=== PATIENT | female | born 1990 | race Caucasian/White ===

== ENCOUNTER 2019-09-15 15:51 | Outpatient (CLI) | payer OTHER, SELFPAY ==
[2019-09-15 16:53] LABS: Basophils Percent Auto 0.4 % (0.2-1.2); Eosinophils Absolute Auto 0.1 K/mm3 (0-0.3); Eosinophils Percent Auto 0.9 % (0-4.4); Hematocrit 37.8 % (37.0-47.0); Hemoglobin 13.2 g/dL (12.0-15.0); Immature Granulocyte Absolute 0.02 K/mm3 (0.00-0.031); Immature Granulocyte Percent A 0.2 % (0-0.5); Lymphocytes Absolute Auto 2.93 K/mm3 (0.9-3.2); Lymphocytes Percent Auto 27.7 % (18.3-44.2); Mean Corpuscular HGB Conc 34.9 g/dl (32-36); Mean Corpuscular Hemoglobin 30.2 pg (26-34); Mean Corpuscular Volume 86.5 fl (80-100); Mean Platelet Volume 10.3 fl (7.4-10.4); Monocytes Absolute Auto 0.6 K/mm3 (0.1-0.6); Monocytes Percent Auto 5.5 % (2.6-8.5); Neutrophils Absolute Auto 6.9 K/mm3 (1.3-6.7); Neutrophils Percent Auto 65.3 % (45.5-73.1); Platelet Count Result 194 k/mm3 (150-375); Red Blood Count 4.37 M/mm3 (4.2-5.4); Red Cell Distribution Width 12.1 % (11.5-14.5); White Blood Count 10.6 K/mm3 (4.5-10.0)
[2019-09-15 17:34] LABS: Hemoglobin A1C 4.9 % (<5.7)
[2019-09-15 17:59] LABS: Vitamin D 25 Hydroxy 43.1 ng/mL
[2019-09-15 18:12] LABS: Hepatitis B Surface Antigen Negative (Negative); Rubella IgG Antibody 95.1 IU/ML
[2019-09-15 18:17] LABS: HIV 1/2 Ab P24 Ag Result Negative (Negative)
[2019-09-16 06:57] LABS: Rapid Plasma Reagin Non-Reactive (NonReactive)
== END 2019-09-15 15:52 | disposition home or self-care (01) ==
LOC: ANHLAB 16:07
PROVIDERS: PCP Family Medicine; Visit Provider Obstetrics & Gynecology Gynecology
DX: Z36.9 Encounter for antenatal screening, unspecified (principal); Z3A.00 Weeks of gestation of pregnancy not specified
CPT/HCPCS: 36415; 82306; 83036; 85025; 86592; 86703; 86762; 86850; 86900; 86901; 87340; G0432

== ENCOUNTER → 2019-10-20 15:41 | Outpatient (CLI) | payer OTHER, SELFPAY ==
--- NOTE | ~2019-10-20 | US_ITS ---
EXAMINATION: US OB >= 14 weeks Fetus DATE: 10/20/2019 16:35 INDICATION: Second trimester anatomic survey TECHNIQUE: Real-time ultrasound of the pelvis was performed. COMPARISON: None. FINDINGS: There is a single living fetus in variable presentation. The placenta is posterior and 8 cm from the internal cervical os. A 1.4 cm hypoechoic area of the placenta could reflect a venous ramos. hea rt rate is 151 beats per minute (bpm). cardiac activity and movement are noted. The amni otic fluid index is subjectively normal. The following anatomy was identified as normal: 4 chamber heart 3 vessel cord cord insertion kidneys urinary bladder stomach spine diaphragm ventricles cisterna magna cerebellum The following biometric data were obtained: Biparietal diameter (BPD): 4.0 cm; head circumference (HC): 15.9 cm; abdominal circumference (AC): 13 .0 cm; femur length (FL): 2.5 cm. These measurements are concordant. Estimated weight is 230 g +/- 34 g, which correlates with the 51st percentile when 03/21/2020 is used as estimated date of delivery. As single measurements, these parameters are each equal to the following estimated gestational ages w ith ranges of +/- 2 standard deviations: BPD: 18 weeks 2 days ( 16 weeks 4 days - 20 weeks 0 days). HC: 18 weeks 5 days ( 17 weeks 2 days - 20 weeks 2 days). AC: 18 weeks 4 days ( 16 weeks 3 days - 20 weeks 4 days). FL: 17 weeks 5 days ( 16 weeks 3 days - 19 weeks 1 days). estimated gestational age based solely on measurements from this exam is 18 weeks 2 days +/- 1 weeks 2 days. IMPRESSION: 1. Single living fetus in variable presentation. 2. Estimated weight is 230 g +/- 34 g, which correlates with the 51st percentile when 03/21/2020 is used as estimated date of delivery. Reviewed, dictated and finalized at location A. IMPRESSION: 1. Single living fetus in variable presentation. 2. Estimated weight is 230 g +/- 34 g, which correlates with the 51st per centile when 03/21/2020 is used as estimated date of delivery.
== END ==
PROVIDERS: Visit Provider Nurse Practitioner
DX: Z36.9 Encounter for antenatal screening, unspecified (principal); Z3A.18 18 weeks gestation of pregnancy
CPT/HCPCS: 76805

== ENCOUNTER 2019-12-27 08:28 | Outpatient (CLI) | payer OTHER, SELFPAY ==
[2019-12-27 10:02] LABS: Hematocrit 35.6 % (37.0-47.0); Hemoglobin 12.1 g/dL (12.0-15.0)
[2019-12-27 11:28] LABS: Glucose 1 Hour PP 50gm Dose 115 mg/dL
[2019-12-27 11:44] LABS: Vitamin D 25 Hydroxy 38.9 ng/mL
[2019-12-27 12:08] LABS: HIV 1/2 Ab P24 Ag Result Negative (Negative)
== END 2019-12-27 08:29 | disposition home or self-care (01) ==
PROVIDERS: Referring Provider Obstetrics & Gynecology Gynecology; Visit Provider Internal Medicine Hematology & Oncology
DX: Z34.90 Encounter for supervision of normal pregnancy, unspecified, unspecified trimester (principal)
CPT/HCPCS: 36415; 82306; 82947; 85014; 85018; 86703; G0432

== ENCOUNTER → 2020-02-22 15:22 | Outpatient (CLI) | payer OTHER, SELFPAY ==
--- NOTE | ~2020-02-22 | US_ITS ---
EXAMINATION: US OB follow up DATE: 02/22/2020 15:48 INDICATION: Size less than dates. Evaluate ARTHUR and growth. TECHNIQUE: Real-time transabdominal obstetric ultrasound. FINDINGS: Comparison to ultrasound dated 10/20/2019 There is a single living fetus in vertex presentation. The placenta is posterior without placenta pr evia. cardiac activity and movement is noted with a heart rate of 138 beats per minute. T he amniotic fluid volume is normal. ARTHUR is normal measuring 17.6 cm. The following biometric data were obtained: BPD: 95mm corresponds to gestational age 38 weeks 6 days. Head circumference: 333mm corresponds to gestational age 38 weeks 0 days. Abdominal circumference: 319mm corresponds to gestational age 35 weeks 6 days. Femur length: 74mm corresponds to gestational age 37 weeks 4 days. Estimated weight: 3055grams +/- 458grams which is 72 percentile. IMPRESSION: 1. Single living intrauterine in vertex presentation with an estimated gestational age of 36 weeks 1 days by inititial ultrasound. Appropriate interval growth. 2. Normal placenta. 3: Normal ARTHUR measures 17.6 cm. Reviewed, dictated and finalized at location A. RUMENT TECHNOLOGIST IMPRESSION: 1. Single living intrauterine in vertex presentation with an estimat ed gestational age of 36 weeks 1 days by inititial ultrasound. Appropriate int erval growth. 2. Normal placenta. 3: Normal ARTHUR measures 17.6 cm.
== END ==
PROVIDERS: PCP Family Medicine; Visit Provider Nurse Practitioner
DX: O36.5930 Maternal care for other known or suspected poor fetal growth, third trimester, not applicable or unspecified (principal); Z3A.36 36 weeks gestation of pregnancy
CPT/HCPCS: 76816

== ENCOUNTER 2020-02-28 14:15 | Outpatient (CLI) | payer OTHER, SELFPAY ==
[2020-02-28] VITALS (15 sets, daily range): BP systolic 143–157; BP diastolic 90–98; PULSE 64–95; TEMP 36.8; O2SAT 98–99; BMI 29.2
[2020-02-28 15:26] LABS: Basophils Percent Auto 0.4 % (0.2-1.2); Eosinophils Absolute Auto 0.1 K/mm3 (0-0.3); Eosinophils Percent Auto 0.8 % (0-4.4); Hematocrit 32.5 % (37.0-47.0); Hemoglobin 11.2 g/dL (12.0-15.0); Immature Granulocyte Absolute 0.02 K/mm3 (0.00-0.031); Immature Granulocyte Percent A 0.3 % (0-0.5); Lymphocytes Absolute Auto 2.04 K/mm3 (0.9-3.2); Lymphocytes Percent Auto 27.3 % (18.3-44.2); Mean Corpuscular HGB Conc 34.5 g/dl (32-36); Mean Corpuscular Hemoglobin 29.9 pg (26-34); Mean Corpuscular Volume 86.7 fl (80-100); Mean Platelet Volume 11.1 fl (7.4-10.4); Monocytes Absolute Auto 0.7 K/mm3 (0.1-0.6); Monocytes Percent Auto 8.7 % (2.6-8.5); Neutrophils Absolute Auto 4.7 K/mm3 (1.3-6.7); Neutrophils Percent Auto 62.5 % (45.5-73.1); Platelet Count Result 157 k/mm3 (150-375); Red Blood Count 3.75 M/mm3 (4.2-5.4); Red Cell Distribution Width 12.2 % (11.5-14.5); White Blood Count 7.5 K/mm3 (4.5-10.0)
[2020-02-28 15:38] LABS: Alanine Aminotransferase 13 U/L (4-35); Albumin Level 3.1 g/dL (3.5-5.1); Alkaline Phosphatase 124 U/L (38-126); Anion Gap 7 mmol/L (8-16); Aspartate Amino Transferase 29 U/L (14-36); Bilirubin,Total 0.5 mg/dL (0.2-1.3); Blood Urea Nitrogen 9 mg/dL (7-17); Calcium 8.7 mg/dL (8.4-10.2); Carbon Dioxide 20 mmol/L (22-30); Chloride 108 mmol/L (98-107); Estimated Glomerular Filt Rate > 60; Glucose 92 mg/dL (65-105); Potassium 3.8 mmol/L (3.4-5.0); Sodium 135 mmol/L (137-145); Uric Acid 6.2 mg/dL (2.5-7.5)
[2020-02-28 15:58] LABS: Add Urine Microscopic? YES; Amorphous Sediment Urine Few; Appearance Urine Cloudy (Clear); Bacteria Urine 4+ /hpf; Bilirubin Urine Negative (Negative); Blood Urine 3+ (Negative); Color Urine Yellow (Yellow); Glucose Urine UA Negative (Negative); Ketones Urine Negative (Negative); Leukocyte Esterase Ur Negative LEU/UL (Negative); Nitrate Urine Negative (Negative); Protein Urine 1+ mg/dL (Negative); RBC Urine 21-50 /hpf (0-2); Specific Grav Ur 1.006 (1.001-1.035); Squamous Epithelial Cell Urine Few /hpf (Few); Urobilinogen Urine Negative mg/dL (<2.0); WBC Urine 16-20 /hpf
[2020-02-28 16:03] LABS: Creatinine Urine 39.2 mg/dL; Total Protein Urine Random 28 mg/dL; Ur Ttl Prot Creatinine Ratio 0.71 mg/mg (0-0.20)
--- NOTE | 2020-02-28 16:13 | PC.NURSE ---
Dr. Bennett returned page and informed of BP's, reactive NST, and lab results. doesn't want to start any hypertensives at this time. Orders for discharge received. Pt to complete 24 hr urine at home and call office morning to discuss results. 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 Pt to be off work until further notice.
== END 2020-02-28 16:45 | disposition home or self-care (01) ==
LOC: ANHOBOP 14:18 → ANHOBPP 14:46
PROVIDERS: PCP Family Medicine; Visit Provider Obstetrics & Gynecology Gynecology
DX: O13.9 Gestational [pregnancy-induced] hypertension without significant proteinuria, unspecified trimester (principal); Z3A.00 Weeks of gestation of pregnancy not specified
CPT/HCPCS: 36415; 59025; 80053; 81001; 82570; 84156; 84550; 85025; 87086; 99199

== ENCOUNTER 2020-02-29 15:46 | Outpatient (NON) | payer OTHER, SELFPAY ==
[2020-02-29 16:02] VITALS: BMI 29.2
[2020-02-29 16:25] LABS: Collection Time Urine 24 HOURS
[2020-02-29 16:26] LABS: Patient Weight 192 Lbs; Total Volume 24 Hour Urine 1800 ml
[2020-02-29 16:35] LABS: Creatinine Clearance Urine 104.4 ml/min (75-125); Creatinine Urine 77.3 mg/dL; Total Protein Urine Random 31 mg/dL
[2020-02-29 16:48] LABS: Total Protein Urine 24 Hr 558 MG/DAY (28-141)
== END 2020-02-29 15:47 ==
PROVIDERS: PCP Family Medicine; Visit Provider Obstetrics & Gynecology Gynecology
DX: O13.3 Gestational [pregnancy-induced] hypertension without significant proteinuria, third trimester (principal); Z3A.37 37 weeks gestation of pregnancy
CPT/HCPCS: 81050; 82575; 84156

== ENCOUNTER 2020-02-29 18:27 | Inpatient (IN) | payer OTHER, SELFPAY ==
[2020-02-20 15:24] VITALS: BMI 28.5
[2020-02-29] VITALS (13 sets, daily range): BP systolic 125–148; BP diastolic 83–98; PULSE 65–95; RESP 18; TEMP 36.9–37.1; O2SAT 98
[2020-02-29] MEDS: DINOPROSTONE 10 MG VAG INSERT VAGINAL (19:30)
[2020-02-29 19:56] LABS: Basophils Percent Auto 0.2 % (0.2-1.2); Eosinophils Absolute Auto 0.1 K/mm3 (0-0.3); Hematocrit 33.1 % (37.0-47.0); Hemoglobin 11.6 g/dL (12.0-15.0); Immature Granulocyte Absolute 0.03 K/mm3 (0.00-0.031); Immature Granulocyte Percent A 0.4 % (0-0.5); Lymphocytes Absolute Auto 2.23 K/mm3 (0.9-3.2); Lymphocytes Percent Auto 26.7 % (18.3-44.2); Mean Corpuscular Hemoglobin 30.9 pg (26-34); Mean Platelet Volume 11.5 fl (7.4-10.4); Monocytes Absolute Auto 0.7 K/mm3 (0.1-0.6); Monocytes Percent Auto 7.9 % (2.6-8.5); Neutrophils Absolute Auto 5.3 K/mm3 (1.3-6.7); Neutrophils Percent Auto 63.8 % (45.5-73.1); Platelet Count Result 160 k/mm3 (150-375); Red Blood Count 3.76 M/mm3 (4.2-5.4); Red Cell Distribution Width 12.6 % (11.5-14.5); White Blood Count 8.4 K/mm3 (4.5-10.0)
[2020-02-29 20:05] LABS: Alanine Aminotransferase 12 U/L (4-35); Albumin Level 3.1 g/dL (3.5-5.1); Alkaline Phosphatase 123 U/L (38-126); Anion Gap 6 mmol/L (8-16); Aspartate Amino Transferase 26 U/L (14-36); Bilirubin,Total 0.5 mg/dL (0.2-1.3); Blood Urea Nitrogen 11 mg/dL (7-17); Calcium 8.2 mg/dL (8.4-10.2); Carbon Dioxide 22 mmol/L (22-30); Chloride 107 mmol/L (98-107); Estimated CRCL calculation 101 ml/min; Estimated Glomerular Filt Rate > 60; Glucose 96 mg/dL (65-105); Potassium 3.9 mmol/L (3.4-5.0); Sodium 135 mmol/L (137-145); Uric Acid 6.2 mg/dL (2.5-7.5)
[2020-02-29 20:53] LABS: HIV 1/2 Ab P24 Ag Result Negative (Negative)
[2020-02-29] MEDS: LACTATED RINGERS 1,000 ML 125 ML IV CONT (22:50)
[2020-02-29] MEDS: AMPICILLIN 2 GM/NS 100 ML 2 GM/100 ML BAG IVPB (22:51)
[2020-02-29] MEDS: fentaNYL CITRATE INJ (*CRX) 100 MCG/2 ML VIAL 50 MCG IV PUSH (23:01)
[2020-03-01] VITALS (172 sets, daily range): BP systolic 111–164; BP diastolic 67–106; PULSE 50–213; RESP 16–20; TEMP 36.6–37.5; O2SAT 93–100
--- NOTE | 2020-03-01 01:01 | WPDANESEPP ---
Anes - Eval Pre Procedure Procedure: labor epidural Date/Time: 03/01/20 01:01 Surgeon: lawrence Preop Diagnosis: pain during labor Pre Op Diagnosis: IOL Patient Data Age: 29 Gender: F Height: 1.73 m Weight: 85 kg Last Vital Signs Temp 36.8 C 03/01/20 00:27 Pulse 78 03/01/20 01:00 Resp 20 03/01/20 00:27 BP 164/105 H 03/01/20 01:00 Pulse Ox 100 03/01/20 01:00 Allergies Allergy/AdvReac Type Severity Reaction Status Date / Time No Known Allergies Allergy Verified 02/28/20 15:34 Home Medications Medication Instructions Recorded Confirmed Type PNV [id number] 2 tablet PO DAILY 02/28/20 02/28/20 History [ Gummies] aspirin [Adult Aspirin] 81 mg PO DAILY 02/28/20 02/28/20 History cholecalciferol (vitamin D3) 125 mcg PO DAILY 02/28/20 02/28/20 History [Vitamin D3] Laboratory Tests 02/29/20 02/29/20 02/29/20 19:39 19:39 19:39 WBC 8.4 K/mm3 K/mm3 (4.5-10.0) RBC 3.76 M/mm3 L M/mm3 (4.2-5.4) Hgb 11.6 g/dL L g/dL (12.0-15.0) Hct 33.1 % L % (37.0-47.0) MCV 88.0 fl fl (80-100) MCH 30.9 pg pg (26-34) MCHC 35.0 g/dl g/dl (32-36) RDW 12.6 % % (11.5-14.5) Plt Count 160 k/mm3 k/mm3 (150-375) MPV 11.5 fl H fl (7.4-10.4) Immature Gran % (Auto) 0.4 % % (0-0.5) Neut % (Auto) 63.8 % % (45.5-73.1) Lymph % (Auto) 26.7 % % (18.3-44.2) [place] % (Auto) 7.9 % % (2.6-8.5) Eos % (Auto) 1.0 % % (0-4.4) Baso % (Auto) 0.2 % % (0.2-1.2) Lymph # (Auto) 2.23 K/mm3 K/mm3 (0.9-3.2) [place] # (Auto) 0.7 K/mm3 H K/mm3 (0.1-0.6) Eos # (Auto) 0.1 K/mm3 K/mm3 (0-0.3) Baso # (Auto) 0.0 K/mm3 K/mm3 (0.0-0.1) Abs Immat Gran (auto) 0.03 K/mm3 K/mm3 (0.00-0.031) Absolute Neuts (auto) 5.3 K/mm3 K/mm3 (1.3-6.7) Absolute Nucleated RBC 0.0 K/mm3 K/mm3 (0.0-0.012) Nucleated RBC % 0.0 % % (0.0-0.2) Sodium Potassium Chloride Carbon Dioxide Anion Gap BUN Creatinine Estim Creat Clear Calc Estimated GFR Glucose Uric Acid Calcium Total Bilirubin AST ALT Alkaline Phosphatase Total Protein Albumin RPR Pending HIV 1&2 Ab/P24 Ag 4thGn Blood Type O Positive Antibody Screen Negative 02/29/20 02/29/20 19:39 19:39 WBC RBC Hgb Hct MCV MCH MCHC RDW Plt Count MPV Immature Gran % (Auto) Neut % (Auto) Lymph % (Auto) [place] % (Auto) Eos % (Auto) Baso % (Auto) Lymph # (Auto) [place] # (Auto) Eos # (Auto) Baso # (Auto) Abs Immat Gran (auto) Absolute Neuts (auto) Absolute Nucleated RBC Nucleated RBC % Sodium 135 mmol/L L mmol/L (137-145) Potassium 3.9 mmol/L mmol/L (3.4-5.0) Chloride 107 mmol/L mmol/L (98-107) Carbon Dioxide 22 mmol/L mmol/L (22-30) Anion Gap 6 mmol/L L mmol/L (8-16) BUN 11 mg/dL mg/dL (7-17) Creatinine 0.80 mg/dL mg/dL (0.7-1.0) Estim Creat Clear Calc 101 ml/min ml/min Estimated GFR > 60 (59 - ) Glucose 96 mg/dL mg/dL (65-105) Uric Acid 6.2 mg/dL mg/dL (2.5-7.5) Calcium 8.2 mg/dL L mg/dL (8.4-10.2) Total Bilirubin 0.5 mg/dL mg/dL (0.2-1.3) AST 26 U/L U/L (14-36) ALT 12 U/L U/L (4-35) Alkaline Phosphatase 123 U/L U/L (38-126) Total Protein 6.0 g/dL L g/dL (6.3-8.2) Albumin 3.1 g/dL L g/dL
[2020-03-01] MEDS: LACTATED RINGERS 1,000 ML 125 ML IV CONT (01:24)
[2020-03-01] MEDS: AMPICILLIN 1 GM/NS 50 ML 1 GM/50 ML BAG IVPB ×2 (03:03→06:55)
[2020-03-01] MEDS: ONDANSETRON INJ 4 MG/2 ML VIAL IV PUSH (04:30)
[2020-03-01] MEDS: OXYTOCIN 30 UNITS/NS 500 ML 30 UNITS/500 ML BAG IV CONT (06:59)
--- NOTE | 2020-03-01 07:39 | WPDOBADMIT ---
Obstetrics - Admit Note Admission Note: record reviewed. No pertinent additions to the history and/or any subsequent changes in the physical findings that are not consistent with the expected course of the were found. Additions to the history and/or subsequent changes in the physical findings follow. None. Here for MIL at 37 wks for preeclampsia. Cervadil last pm with SROM and labor. Now 3 cm. FHTs reactive. Pitocin per protocol. VSS labs stable
--- NOTE | 2020-03-01 09:41 | PM.OBPRVD ---
OB - Delivery Note Procedure Delivery date: 03/01/20 Procedure: events: Pre-Eclampsia and Labor Induction Intrapartal events: None Induction method: per pitocin protocol and per cervidil protocol Delivery monitor: external FHT and external uterine Route of delivery: Episiotomy description: Midline Specimen: No Quantitative Blood Loss (ml): 98 Anesthesia type: Epidural Disposition: floor Baby Date of : 03/01/20 Weeks of gestation at delivery: 37 gender: Male presentation: vertex position: Left Occiput Anterior Placenta delivery description: Spontaneous cord vessel description: Nuchal Cord (x3 delivered through) score one minute: 8 score five minutes: 9
--- NOTE | 2020-03-01 09:42 | PM.OBDSVD ---
DS: Admitting Diagnosis Admitting Diagnosis Admitting Diagnosis: preeclampsia 37 weeks DS: Discharge Diagnosis Discharge Diagnosis (1) 37 weeks gestation of : Code(s): Z3A.37 - 37 weeks gestation of Status: Acute (2) Preeclampsia: Code(s): O14.90 - Unspecified pre-eclampsia, unspecified trimester Status: Acute (3) (normal spontaneous vaginal delivery): Code(s): O80 - Encounter for full-term uncomplicated delivery Status: Acute OB - DS: Summary OB Procedures : Ultrasound OB Procedures Intrapartum: Spontaneous Vag Delivery OB Procedures: : None Peripartum Data Infant Delivery Method: Natural Vaginal Episiotomy description: Midline complications: none Status at Discharge Functional status at discharge: independent ambulation Overall status at discharge: patient is progressing back to baseline Time Spent with Patient Time attestation: Total time spent providing and/or coordinating discharge services: DS: Data Data Completed and Pending Labs on day of discharge: Labs from last 24 hours 02/29/20 02/29/20 02/29/20 19:39 19:39 19:39 WBC RBC Hgb Hct MCV MCH MCHC RDW Plt Count MPV Immature Gran % (Auto) Neut % (Auto) Lymph % (Auto) [place] % (Auto) Eos % (Auto) Baso % (Auto) Lymph # (Auto) [place] # (Auto) Eos # (Auto) Baso # (Auto) Abs Immat Gran (auto) Absolute Neuts (auto) Absolute Nucleated RBC Nucleated RBC % Sodium 135 L Potassium 3.9 Chloride 107 Carbon Dioxide 22 Anion Gap 6 L BUN 11 Creatinine 0.80 Estim Creat Clear Calc 101 Estimated GFR > 60 Glucose 96 Uric Acid 6.2 Calcium 8.2 L Total Bilirubin 0.5 AST 26 ALT 12 Alkaline Phosphatase 123 Total Protein 6.0 L Albumin 3.1 L RPR HIV 1&2 Ab/P24 Ag 4thGn Negative Blood Type O Positive Antibody Screen Negative 02/29/20 02/29/20 19:39 19:39 WBC 8.4 RBC 3.76 L Hgb 11.6 L Hct 33.1 L MCV 88.0 MCH 30.9 MCHC 35.0 RDW 12.6 Plt Count 160 MPV 11.5 H Immature Gran % (Auto) 0.4 Neut % (Auto) 63.8 Lymph % (Auto) 26.7 [place] % (Auto) 7.9 Eos % (Auto) 1.0 Baso % (Auto) 0.2 Lymph # (Auto) 2.23 [place] # (Auto) 0.7 H Eos # (Auto) 0.1 Baso # (Auto) 0.0 Abs Immat Gran (auto) 0.03 Absolute Neuts (auto) 5.3 Absolute Nucleated RBC 0.0 Nucleated RBC % 0.0 Sodium Potassium Chloride Carbon Dioxide Anion Gap BUN Creatinine Estim Creat Clear Calc Estimated GFR Glucose Uric Acid Calcium Total Bilirubin AST ALT Alkaline Phosphatase Total Protein Albumin RPR Pending HIV 1&2 Ab/P24 Ag 4thGn Blood Type Antibody Screen Discharge Plan Discharge Attending physician on discharge: Irene Bennett Discharging Clinician: Irene Bennett Anticipated Discharge Date/Time: 03/03/20 09:44 Patient Disposition: Home, Self-Care Activity: may shower and pelvic rest Diet: regular Patient Instructions: Antibiotic Form Stand Alone Forms: General Discharge Information Follow-up/Referrals: Irene Bennett MD [Physician] - 6 Weeks (1 week BP check) Discharge Medications: New norethindrone (contraceptive) 0.35 mg tablet 0.35 mg PO DAILY Qty: 84 RF: 3 Continued cholecalciferol (vitamin D3) [Vitamin D3] 125 mcg (5,000 unit) Tablet 125 mcg PO DAILY RF: 0 Gummies 400 mcg-35 mg- 25 mg-5 mg Tablet,Chewable 2 tablet PO DAILY RF: 0 Discontinued aspirin [Adult Aspirin] 81 mg Tablet,Chewable 81 mg PO DAILY RF: 0 Date of admission: 02/29/20 18:27 Primary Care Provider: Kojo Jean Baptiste Admitting Provider: Irene Bennett Attending physician on admission: Irene Bennett Condition: Stable
[2020-03-01] MEDS: OXYTOCIN 30 UNITS/NS 500 ML 30 UNITS/500 ML BAG 125 UNITS IV CONT (10:03)
[2020-03-01] MEDS: IBUPROFEN 600 MG TABLET PO ×2 (10:56→19:24)
[2020-03-01 11:13] LABS: Rapid Plasma Reagin Non-Reactive (NonReactive)
[2020-03-01] MEDS: ACETAMINOPHEN 325 MG TABLET 650 MG PO ×2 (12:07→22:28)
[2020-03-01] MEDS: BENZOCAINE 20% AER SPR (*SP) 56 GM CAN 1 SPRAY TOPICAL (12:08)
[2020-03-01] MEDS: WITCH HAZEL 40 PADS 1 PAD TOPICAL (12:08)
[2020-03-01] MEDS: DOCUSATE SODIUM 100 MG CAPSULE PO (19:24)
[2020-03-02 05:31] LABS: Hematocrit 29.8 % (37.0-47.0); Hemoglobin 10.3 g/dL (12.0-15.0)
[2020-03-02 07:55] VITALS: BP 139/92; PULSE 72; RESP 18; TEMP 36.3
--- NOTE | 2020-03-02 09:05 | P.PNOB_ITS ---
OB - PN: Subj Subjective Date/time seen: 03/02/20 09:05 Patient comments: no complaints, pain well controlled and other (No PIH sx) [place] baby status: doing well OB - PN: Obj Data Labs CBC & Chem 7: 03/02/20 05:16 02/29/20 19:39 Labs: Laboratory Results - last 24 hr 02/29/20 03/02/20 19:39 05:16 Hgb 10.3 L Hct 29.8 L RPR Non-reactive OB - PN A/P Assessment and Plan (1) Preeclampsia: Code(s): O14.90 - Unspecified pre-eclampsia, unspecified trimester Status: Acute Assessment and Plan: BP stable No diuresis yet No Sx Plan day: 1 Plan: routine care Time Spent With Patient Time: Total time spent is greater than 50% in coordination of care (as documented) at patient's floor/unit and/or counseling patient: Exam : Bimanual exam- vagina & uterus: other (Uterus firm, nt @U)
[2020-03-02] MEDS: DOCUSATE SODIUM 100 MG CAPSULE PO ×2 (09:33→17:57)
[2020-03-02] MEDS: IBUPROFEN 600 MG TABLET PO ×2 (09:33→17:56)
[2020-03-02] MEDS: MULTIVIT/MIN/PREN/FOL AC/IRON TABLET 1 TAB PO (09:34)
--- NOTE | 2020-03-02 10:37 | WPDANLDPN2 ---
Anes-Prog Note L&D Date/Time: 03/02/20 10:37 Comfortable throughout: labor and delivery Neuraxial method: epidural Epidural/Spinal procedure site: clean & non-tender Neuro status: Neuro function grossly intact. Cardiovascular status: normal Respiratory status: normal Airway patency: baseline Mental status: baseline Post-Op hydration status: normal Vital Signs: Last Vital Signs Temp 36.8 C 03/01/20 19:15 Pulse 80 03/01/20 19:15 Resp 18 03/01/20 19:15 BP 144/90 H 03/01/20 19:15 Pulse Ox 100 03/01/20 12:40 Pain score (VAS): 0 I/O: Intake & Output 03/01/20 03/02/20 03/02/20 23:59 07:59 15:59 Intake Total 450 Balance 450 Post-procedural complaints: none Patient feedback: Patient satisfied with anesthetic care.
[2020-03-02 18:35] VITALS: BP 146/96; PULSE 82; RESP 16; TEMP 36.6
[2020-03-02] MEDS: ACETAMINOPHEN 325 MG TABLET 650 MG PO (23:40)
[2020-03-03 08:35] VITALS: BP 145/104; PULSE 96; RESP 16; TEMP 36.6; O2SAT 98
[2020-03-03] MEDS: IBUPROFEN 600 MG TABLET PO (08:35)
[2020-03-03] MEDS: DOCUSATE SODIUM 100 MG CAPSULE PO (08:35)
[2020-03-03] MEDS: MULTIVIT/MIN/PREN/FOL AC/IRON TABLET 1 TAB PO (08:35)
[2020-03-03 09:20] VITALS: BP 150/96
--- NOTE | 2020-03-03 11:17 | PM.OBPNVD ---
OB - PN: Subj Subjective Date/time seen: 03/03/20 11:17 Patient comments: no complaints and pain well controlled baby status: doing well OB - PN: Obj Data Labs CBC & Chem 7: 03/02/20 05:16 02/29/20 19:39 OB - PN A/P Assessment and Plan (1) Preeclampsia: Code(s): O14.90 - Unspecified pre-eclampsia, unspecified trimester Status: Acute Assessment and Plan: BP elevated when patient upset couldn't find my baby took hour for RN to respond to her call light Feeling calmer now and BP down Continue to check at home. Call for >160/100 Plan day: 2 Plan: routine care, discharge home and follow up 6 weeks (and 1 week bp check) Time Spent With Patient Time: Total time spent is greater than 50% in coordination of care (as documented) at patient's floor/unit and/or counseling patient: Exam : Bimanual exam- vagina & uterus: other (Uterus firm, nt @U)
[2020-03-03 14:50] VITALS: BP 136/96; PULSE 106; RESP 16; O2SAT 97
[2020-03-06 08:35] VITALS: BP 147/102; PULSE 108; RESP 20; TEMP 37.1; O2SAT 99
== END 2020-03-03 15:53 | disposition home or self-care (01) | DRG 807 ==
LOC: ANHLDR 03-01 09:56 → ANHOB2 03-01 12:46
PROVIDERS: Admitting Provider Obstetrics & Gynecology Gynecology; PCP Family Medicine; Visit Provider Obstetrics & Gynecology Gynecology
DX: O14.94 Unspecified pre-eclampsia, complicating childbirth (principal); Z37.0 Single live birth; O13.4 Gestational [pregnancy-induced] hypertension without significant proteinuria, complicating childbirth; O76 Abnormality in fetal heart rate and rhythm complicating labor and delivery; O69.81X0 Labor and delivery complicated by cord around neck, without compression, not applicable or unspecified; Z3A.37 37 weeks gestation of pregnancy
CPT/HCPCS: 36415; 59025; 80053; 81001; 81050; 82570; 82575; 84156; 84550; 85014; 85018; 85025; 86592; 86703; 86850; 86900; 86901; 87086; 99199; A9270; G0432; J0290; J2405; J2590; J2795; J3010; J7120

== ENCOUNTER 2020-08-17 11:17 | Emergency (ER) | payer OTHER, SELFPAY ==
[2020-08-17 11:24] VITALS: BP 117/96; PULSE 107; RESP 16; TEMP 37.3; O2SAT 100
--- NOTE | 2020-08-17 11:33 | ED.GENADULT ---
HPI - General Adult General Chief complaint: Upper Respiratory Infection Stated complaint: sinus issues/pack Time Seen by Provider: 08/17/20 11:33 Source: patient and RN notes reviewed Mode of arrival: ambulatory Limitations: no limitations History of Present Illness HPI narrative: 29-year-old female presents with complaints of upper respiratory infection, some facial congestion, facial pressure, and intermittent headache (not the worst of her life) for the past 3 weeks. ?Jennifer reports increasing symptoms over the past 3 days. ?Ibuprofen was last?taken today at 06:30 AM and OTC congestion and non drowsy without relief. ?No facial swelling.? No longer has a cough, no chest congestion. ?Nasal congestion and rhinorrhea. Denies sore throat. ?No high fevers, drooling, neck or throat swelling. ?No voice change. ?No nausea, vomiting, or abdominal pain. ?Tolerating liquids well. ?Denies chills, dyspnea, difficulty swallowing, jaw pain, dental pain, foreign body sensation, and rash. ?No chest pain or shortness of breath. ?The patient reports she has not been diagnosed with COVID-19. ?The patient reports she received 2 Moderna COVID-19 vaccines. ?The patient reports she is not waiting for the results of a COVID-19 lab test. ?The patient reports she does not have chills, weakness, or fatigue. ?The patient reports she does not have a new or worsening cough. ?The patient reports she does not have any rhinorrhea, congestion, sore throat, loss of taste or smell, and diarrhea. ?Denies recent traveling. ?Denies concerns for COVID-19 or exposures. ?At this time, the patient is not suspected of having COVID-19.?? Some parts of this dictation were generated by voice recognition software and may contain typographical and/or grammatical inaccuracies. Related Data Home Medications Medication Instructions Recorded Confirmed norethindrone-e.estradiol-iron 1 tablet PO DAILY 08/17/20 08/17/20 [Aurovela 24 Fe] Allergies Allergy/AdvReac Type Severity Reaction Status Date / Time No Known Allergies Allergy Verified 08/17/20 11:26 Review of Systems Review of Systems: Narrative: CONSTITUTIONAL: Denies fever, chills, sweats. EYES: Denies visual changes, redness, discharge. ENT: Complains of rhinorrhea, congestion, facial congestion and pressure. Denies sore throat, otalgia. CARDIOVASCULAR: Denies chest pain, palpitations, edema. RESPIRATORY: Denies dyspnea, wheezing, cough. GASTROINTESTINAL: Denies abdominal pain, nausea, vomiting, diarrhea. GENITOURINARY: Denies dysuria, hematuria, abnormal discharge SKIN: Denies rash or itching. MUSCULOSKELETAL: Denies acute back pain, joint pain, or myalgia. NEUROLOGIC: Denies numbness or focal weakness. Complains of intermittent PACK. PSYCHIATRIC: Denies anxiety or depression. All other systems reviewed & are unremarkable except as noted in HPI and below. [facility] Past Medical History Medical History (Updated 08/18/20 @ 00:00 by [facility]) 37 weeks gestation of IUP (intrauterine ), incidental (normal spontaneous vaginal delivery) Preeclampsia Vaginal delivery Surgical History Surgical History (Updated 08/17/20 @ 11:54 by RATNA Salazar) No significant past surgical history Family History Family History (Updated 08/17/20 @ 11:54 by RATNA Salazar) Mother Hypertension Acute myocardial infarction, Onset Age: 64 Diabetes mellitus Father Hypertension Grandparent Colon cancer Social History Social History (Updated 08/17/20 @ 11:55 by RATNA Salazar) Smoking status: Never smoker Tobacco type: cigarettes Second hand tobacco smoke exposure: No Alcohol intake: current Substance use: never Substance use type: does not use Living arrangements: with family Occupation/Education: occupation Gender identity (if verbalized by the patient): Female Sexual Orientation (if Verbalized by the Patient): Straight or Heterosexual Spiritu
== END 2020-08-17 11:56 | disposition home or self-care (01) ==
PROVIDERS: Emergency Provider Nurse Practitioner Family; PCP Family Medicine
DX: J01.10 Acute frontal sinusitis, unspecified (principal)
CPT/HCPCS: 99213; G0463

== ENCOUNTER → 2022-05-06 14:13 | Outpatient (CLI) | payer OTHER, SELFPAY ==
--- NOTE | ~2022-05-06 | US_ITS ---
EXAMINATION: US OB transvaginal INDICATION: Uncertain dates/hx of miscarriage TECHNIQUE: Sonography of the pelvis was performed by transabdominal and transvaginal techniques. COMPARISON: None. RESULT: Uterus: Orientation: Anteverted. 8.5 x 4.1 x 5.1 cm. Myometrium: homogeneous echogenicity. Gestation: - Intrauterine gestational sac: Single present. - Yolk sac: Visualized, not directly measured. - Embryo: Single present. - Wesson rump length: 0.8 cm, corresponding gestational age 6 weeks, 5 days. -Gestational heart rate: present 131 bpm. -Subgestational hematoma: Absent . Right ovary: Not visualized. No adnexal abnormality detected. Left ovary: 2.6 x 1.5 x 2.2 cm. Normal sonographic appearance with physiologic follicles. . . Pelvis free fluid: None. IMPRESSION: Single, live intrauterine gestation. Estimated Gestational Age: 6 weeks, 5 days by crown rump length. ANNE by ultrasound 12/25/2022. Reviewed, dictated and finalized at location K. ING SUPERVISOR IMPRESSION: Single, live intrauterine gestation. Estimated Gestational Age: 6 weeks, 5 days by crown rump length. ANNE by ultras ound 12/25/2022.
== END ==
PROVIDERS: PCP Internal Medicine; Visit Provider Obstetrics & Gynecology Gynecology
DX: O26.21 Pregnancy care for patient with recurrent pregnancy loss, first trimester (principal); Z3A.01 Less than 8 weeks gestation of pregnancy
CPT/HCPCS: 76817

== ENCOUNTER → 2022-07-25 10:15 | Outpatient (CLI) | payer OTHER, SELFPAY ==
--- NOTE | ~2022-07-25 | US_ITS ---
EXAMINATION: US OB /maternal detail DATE: 07/25/2022 10:42 INDICATION: anatomic survey. TECHNIQUE: Real-time ultrasound of the pelvis was performed. COMPARISON: Ultrasound 05/06/2022 FINDINGS: There is a single living fetus in transverse lie. The placenta is posterior, 4.3 cm from the cervix. The cervical length is 2.7 cm on transabdominal images, which is normal. heart rate is 147 charles ts per minute (bpm). The amniotic fluid index is subjectively normal. The following biometric data were obtained: Biparietal diameter (BPD): 3.8 cm; head circumference (HC): 15.3 cm; abdominal circumference (AC): 13 .0 cm; femur length (FL): 2.6 cm. These measurements are concordant. Estimated weight is 228 g +/- 34 g, which correlates with the 48th percentile when 12/25/22 is used as estimated date of delivery. As single measurements, these parameters are each equal to the following estimated gestational ages: BPD: 17 weeks 5 days. HC: 18 weeks 2 days. AC: 18 weeks 4 days. FL: 17 weeks 5 days. estimated gestational age based solely on measurements from this exam is 18 weeks 1 days +/- 1 weeks 2 days. The cerebral ventricles, cerebellum, cisterna magna, nuchal fold, and visualized portions of the spin e are normal. The heart is normal. The diaphragm, stomach, kidneys, and bladder are normal. There are two umbilical arteries to yield a 3-vessel cord. The cord insertion is normal. IMPRESSION: 1. Single living fetus in transverse lie. 2. Estimated weight is 228 g +/- 34 g, which correlates with the 48th percentile when 12/25/22 is used as estimated date of delivery. This date was set by ultrasound on 05/06/2022. 3. Normal anatomic survey. Reviewed, dictated and finalized at location E. IMPRESSION: 1. Single living fetus in transverse lie. 2. Estimated weight is 228 g +/- 34 g, which correlates with the 48th pe rcentile when 12/25/22 is used as estimated date of delivery. This date was set by ultrasound on 05/06/2022. 3. Normal anatomic survey.
== END ==
PROVIDERS: PCP Advanced Practice Midwife; Visit Provider Advanced Practice Midwife
DX: Z36.9 Encounter for antenatal screening, unspecified (principal); Z3A.18 18 weeks gestation of pregnancy
CPT/HCPCS: 76805

== ENCOUNTER 2022-09-26 18:05 | Observation (INO) | payer OTHER, SELFPAY ==
--- NOTE | ~2022-09-26 | US_ITS ---
US OB limited 09/26/2022 19:13 Indication: Evaluate placenta. Spotting. Procedure: High-resolution Limited obstetrical ultrasound Comparison: 07/25/2022 Findings: There is a single living intrauterine in transverse left presentation. Placenta i s posterior. Cervical length is 4.6 cm. heart rate is 158 BPM. Amniotic fluid volume is subject ively normal. The placenta is grossly normal, without suggestion of placenta abruption. However, ult rasound is not diagnostic of abruption since acute hemorrhage can be isoechoic to be placenta. Placen akin margin is 4.8 cm to the cervix. Recommend clinical correlation. Impression: 1: Single living intrauterine in transverse left presentation. 2: Posterior placenta without evidence for previa. Reviewed, dictated and finalized at location A. Impression: 1: Single living intrauterine in transverse left presentation. 2: Posterior placenta without evidence for previa.
--- NOTE | 2022-09-26 18:05 | OBADM ---
This patient, Jennifer Hernandez, admitted to the OB room OB Post 115 for observation. Patient/family oriented to hospital policies and general routines including ID bracelet, bed and alarms, visiting hours, pain management, procedures, bathroom and other care routines, personal items, smoking policy, room service/diet, and visiting hours. Patient/Family are encouraged to report perceived risks to care and to ask questions if they do not understand what they are told or what they should do.
[2022-09-26 18:35] VITALS: BP 114/68; PULSE 94
[2022-09-26 19:08] LABS: Appearance Urine Clear (Clear); Bilirubin Urine Negative (Negative); Blood Urine Negative (Negative); Color Urine Yellow (Yellow); Glucose Urine UA Negative (Negative); Ketones Urine Negative (Negative); Leukocyte Esterase Ur Negative LEU/UL (Negative); Nitrate Urine Negative (Negative); Protein Urine Negative (Negative); Specific Grav Ur 1.003 (1.001-1.035); Urobilinogen Urine 0.2 mg/dL (<2.0); pH Urine 6.5 (5.0-9.0)
[2022-09-26 19:19] LABS: Add Urine Microscopic? NO
--- NOTE | 2022-09-26 20:52 | PC.NURSE ---
Updated Dr. Guerrero on maternal and assessment and ultrasound report. Patient resting comfortably without complaints. Discharge instructions received.
--- NOTE | 2022-09-26 21:05 | PC.NURSE ---
Discharge instructions reviewed with patient. labor precautions reviewed with patient and educational handout reviewed with patient. Kick counts reviewed with patient. Patient states understanding of discharge instructions and education. Patient instructed to maintain pelvic rest until followup appointment. Patient instructed to call Dr. Salazar office on Thursday to scheduled follow up appointment for this week.
--- NOTE | 2022-10-08 14:03 | P.PNOB_ITS ---
OB - Triage/Final Diagnosis Visit Information Comments/Additional reasons for admission: I have assessed the risk for this patient, Jennifer Hernandez, and determined that she would benefit from observation care. Evaluation Laboratory results: Laboratory Tests 09/26/22 18:54 Urine Color Yellow Urine Appearance Clear Urine pH 6.5 Ur Specific Mcdonough 1.003 Urine Protein Negative Urine Glucose (UA) Negative Urine Ketones Negative Ur Blood (Man) Negative Urine Nitrate Negative Urine Bilirubin Negative Urine Urobilinogen 0.2 Leukocyte Esterase Rfl Negative Final Diagnosis (1) Vaginal bleeding in : Code(s): O46.90 - Antepartum hemorrhage, unspecified, unspecified trimester Status: Acute
== END 2022-09-26 21:05 | disposition home or self-care (01) ==
PROVIDERS: Admitting Provider Obstetrics & Gynecology; PCP Internal Medicine; Referring Provider Advanced Practice Midwife; Visit Provider Advanced Practice Midwife
DX: O46.92 Antepartum hemorrhage, unspecified, second trimester (principal); Z3A.27 27 weeks gestation of pregnancy
CPT/HCPCS: 76815; 81003; G0378; G0379

== ENCOUNTER → 2022-11-11 10:54 | Outpatient (CLI) | payer OTHER, SELFPAY ==
--- NOTE | ~2022-11-11 | US_ITS ---
EXAMINATION: US OB follow up DATE: 11/11/2022 11:23 INDICATION: COVID . TECHNIQUE: Real-time ultrasound of the pelvis was performed. COMPARISON: 09/26/2022 and 07/25/2022 FINDINGS: There is a single living fetus in vertex presentation, longitudinal lie. The placenta is fundal/post erior. heart rate is 143 bpm. The amniotic fluid index is 12.5 cm, which is normal (5th to 95th percentile is 8.3 to 24.5 cm). The following biometric data were obtained: Biparietal diameter (BPD): 8.48 cm; head circumference (HC): 30.97 cm; abdominal circumference (AC): 29.63 cm; femur length (FL): 6.37 cm. These measurements are concordant. Estimated weight is 2225 g +/- 333.73 g, which correlates with the 37.9 percentile when 023 is used as estimated date of delivery. As single measurements, these parameters are each equal to the following estimated gestational ages w ith ranges of +/- 2 standard deviations: BPD: 34 weeks 1 days ( 31 weeks 1 days - 37 weeks 2 days). HC: 34 weeks 4 days ( 31 weeks 4 days - 37 weeks 4 days). AC: 33 weeks 4 days ( 30 weeks 5 days - 36 weeks 4 days). FL: 32 weeks 6 days ( 30 weeks 0 days - 35 weeks 6 days). estimated gestational age based solely on measurements from this exam is 33 weeks 6 days +/- 2 weeks 3 days. IMPRESSION: Single living fetus in vertex presentation. Biometrics detailed above. Normal ARTHUR. Estimated gestational age by ultrasound 33 weeks and 6 days. ANNE by ultrasound 12/24/2022. Reviewed, dictated and finalized at location K.
== END ==
PROVIDERS: PCP Internal Medicine; Visit Provider Obstetrics & Gynecology Gynecology
DX: O98.513 Other viral diseases complicating pregnancy, third trimester (principal); Z3A.33 33 weeks gestation of pregnancy
CPT/HCPCS: 76816

== ENCOUNTER 2022-12-10 10:06 | Inpatient (IN) | payer OTHER, SELFPAY ==
[2022-12-10] VITALS (116 sets, daily range): BP systolic 84–136; BP diastolic 47–98; PULSE 61–119; TEMP 36.5; O2SAT 95–100; BMI 30.8
[2022-12-10 11:44] LABS: Basophils Percent Auto 0.4 % (0.2-1.2); Eosinophils Absolute Auto 0.1 K/mm3 (0-0.3); Eosinophils Percent Auto 0.5 % (0-4.4); Hematocrit 34.4 % (37.0-47.0); Hemoglobin 11.2 g/dL (12.0-15.0); Immature Granulocyte Absolute 0.04 K/mm3 (0.00-0.031); Immature Granulocyte Percent A 0.4 % (0-0.5); Lymphocytes Percent Auto 19.5 % (18.3-44.2); Mean Corpuscular HGB Conc 32.6 g/dl (32-36); Mean Corpuscular Volume 89.1 fl (80-100); Mean Platelet Volume 10.4 fl (7.4-10.4); Monocytes Absolute Auto 0.5 K/mm3 (0.1-0.6); Monocytes Percent Auto 5.7 % (2.6-8.5); Neutrophils Absolute Auto 6.8 K/mm3 (1.3-6.7); Neutrophils Percent Auto 73.5 % (45.5-73.1); Platelet Count Result 169 k/mm3 (150-375); Red Blood Count 3.86 M/mm3 (4.2-5.4); Red Cell Distribution Width 12.7 % (11.5-14.5); White Blood Count 9.2 K/mm3 (4.5-10.0)
[2022-12-10 11:46] LABS: Appearance Urine Clear (Clear); Bilirubin Urine Negative (Negative); Blood Urine Negative (Negative); Color Urine Yellow (Yellow); Glucose Urine UA Negative (Negative); Ketones Urine Negative (Negative); Leukocyte Esterase Ur Negative LEU/UL (NEGATIVE); Nitrate Urine Negative (Negative); Protein Urine Negative (Negative); Specific Grav Ur 1.005 (1.001-1.035); Urobilinogen Urine 0.2 mg/dL (<2.0); pH Urine 6.5 (5.0-9.0)
[2022-12-10 11:52] LABS: Creatinine Urine 13.9 mg/dL; Total Protein Urine Random 13 mg/dL; Ur Ttl Prot Creatinine Ratio 0.94 mg/mg (0-0.20)
[2022-12-10 11:56] LABS: Alanine Aminotransferase 18 U/L (6-35); Albumin Level 3.7 g/dL (3.5-5.1); Alkaline Phosphatase 102 U/L (38-126); Anion Gap 6 mmol/L (8-16); Aspartate Amino Transferase 28 U/L (14-36); Bilirubin,Total 0.8 mg/dL (0.2-1.3); Blood Urea Nitrogen 11 mg/dL (7-17); Calcium 8.4 mg/dL (8.4-10.2); Carbon Dioxide 20 mmol/L (22-30); Chloride 108 mmol/L (98-107); Estimated Glomerular Filt Rate > 60; Glucose 78 mg/dL (65-110); Potassium 4.1 mmol/L (3.4-5.0); Sodium 134 mmol/L (137-145); Uric Acid 4.1 mg/dL (2.5-7.5)
[2022-12-10 12:43] LABS: Add Urine Microscopic? NO
[2022-12-10] MEDS: OXYTOCIN 30 UNITS/NS 500 ML 30 UNITS/500 ML BAG IV CONT (14:23)
[2022-12-10] MEDS: LACTATED RINGERS 1,000 ML 125 ML IV CONT ×2 (14:24→18:50)
--- NOTE | 2022-12-10 14:53 | LDADM ---
This patient, Jennifer Hernandez, was admitted to Labor/Delivery/Recovery 107 on 12/10/22 at 10:06. Plans for labor, pain management and were discussed with patient. Patient/family oriented to hospital policies and general routines including ID bracelet, bed and alarms, visiting hours, pain management, procedures, bathroom and other care routines, personal items, smoking policy, room service/diet and guest tray routines, security routines, and visiting hours. Patient/Family are encouraged to report perceived risks to care and to ask questions if they do not understand what they are told or what they should do. See OBIX for further documentation.
--- NOTE | 2022-12-10 15:27 | WPDOBADMIT ---
Obstetrics - Admit Note Admission Note: record reviewed. No pertinent additions to the history and/or any subsequent changes in the physical findings that are not consistent with the expected course of the were found. Additions to the history and/or subsequent changes in the physical findings follow. Preeclampsia. Pt with 2 mild range BPs > 4 hours apart (1st reading on home monitor), UPC ratio 0.9. Plan IOL with pitocin.
[2022-12-10] MEDS: ACETAMINOPHEN 500 MG TABLET 1000 MG PO (17:55)
--- NOTE | 2022-12-10 18:12 | PM.OBPNLAB ---
Pain Control Date/time seen: 12/10/22 2161 Pain control: tolerating well Pelvic Exam Dilation (cm): 3 Effacement (%): 80 station: -2 Amniotic membrane status: Intact Comments: head well applied to cervix Contractions Monitor mode: External Contraction pattern: Irregular Contraction intensity: Moderate Status status: Category l Comments: +accelerations Assessment and Plan Pitocin rate (mU/min): 10 Assessment: induction ongoing Comments: CNM to bedside. Discussed plan of care an option for amniotomy. Discussed risks, benefits, and expectations of breaking water. Patient is agreeable. Amniotomy performed and there was a moderate return of clear amniotic fluid. Patient tolerated procedure well. Pitocin decreased to 6ml/hr. Anticipate vaginal . Dr. Bennett updated.
--- NOTE | 2022-12-10 19:02 | WPDANESEPPF ---
Anes - Initial Pre Proc Eval Procedure: Labor epidural Date/Time: 12/10/22 19:02 Surgeon: Irene Bennett MD Pre Op Diagnosis: Labor Pain Pre Op Diagnosis: contractions Patient Data Age: 32 Gender: F Height: 1.73 m Weight: 92 kg Last Vital Signs Temp 36.5 C 12/10/22 17:45 Pulse 79 12/10/22 19:01 BP 117/80 12/10/22 19:01 Pulse Ox 99 12/10/22 18:58 O2 Del Method Room Air 12/10/22 14:44 Allergies Allergy/AdvReac Type Severity Reaction Status Date / Time No Known Allergies Allergy Verified 11/26/22 14:19 Home Medications Medication Instructions Recorded Confirmed Type aspirin 81 mg chewable tablet 162 mg PO DAILY 11/26/22 11/26/22 History vits no.126-ferrous fum 1 tablet PO DAILY 11/26/22 11/26/22 History 28 mg iron-folic acid 800 mcg tablet (Classic ) cholecalciferol (vitamin D3) 50 50 mcg PO DAILY 12/10/22 12/10/22 History mcg (2,000 unit) capsule (Vitamin D3) Laboratory Tests 12/10/22 12/10/22 10:57 14:10 WBC 9.2 K/mm3 (4.5-10.0) RBC 3.86 L M/mm3 (4.2-5.4) Hgb 11.2 L g/dL (12.0-15.0) Hct 34.4 L % (37.0-47.0) MCV 89.1 fl (80-100) MCH 29.0 pg (26-34) MCHC 32.6 g/dl (32-36) RDW 12.7 % (11.5-14.5) Plt Count 169 k/mm3 (150-375) MPV 10.4 fl (7.4-10.4) Immature Gran % (Auto) 0.4 % (0-0.5) Neut % (Auto) 73.5 H % (45.5-73.1) Lymph % (Auto) 19.5 % (18.3-44.2) [place] % (Auto) 5.7 % (2.6-8.5) Eos % (Auto) 0.5 % (0-4.4) Baso % (Auto) 0.4 % (0.2-1.2) Lymph # (Auto) 1.80 K/mm3 (0.9-3.2) [place] # (Auto) 0.5 K/mm3 (0.1-0.6) Eos # (Auto) 0.1 K/mm3 (0-0.3) Baso # (Auto) 0.0 K/mm3 (0.0-0.1) Abs Immat Gran (auto) 0.04 H K/mm3 (0.00-0.031) Absolute Neuts (auto) 6.8 H K/mm3 (1.3-6.7) Absolute Nucleated RBC 0.0 K/mm3 (0.0-0.012) Nucleated RBC % 0.0 % (0.0-0.2) Sodium 134 L mmol/L (137-145) Potassium 4.1 mmol/L (3.4-5.0) Chloride 108 H mmol/L (98-107) Carbon Dioxide 20 L mmol/L (22-30) Anion Gap 6 L mmol/L (8-16) BUN 11 mg/dL (7-17) Creatinine 0.60 L mg/dL (0.7-1.0) Estim Creat Clear Calc Not Reportable Estimated GFR > 60 (59 - ) Glucose 78 mg/dL (65-110) Uric Acid 4.1 mg/dL (2.5-7.5) Calcium 8.4 mg/dL (8.4-10.2) Total Bilirubin 0.8 mg/dL (0.2-1.3) AST 28 U/L (14-36) ALT 18 U/L (6-35) Alkaline Phosphatase 102 U/L (38-126) Total Protein 7.0 g/dL (6.3-8.2) Albumin 3.7 g/dL (3.5-5.1) Urine Color Yellow (Yellow) Urine Appearance Clear (Clear) Urine pH 6.5 (5.0-9.0) Ur Specific [place] 1.005 (1.001-1.035) Urine Protein Negative mg/dL (Negative) Urine Glucose (UA) Negative mg/dL (Negative) Urine Ketones Negative mg/dL (Negative) Ur Blood (Man) Negative (Negative) Urine Nitrate Negative (Negative) Urine Bilirubin Negative (Negative) Urine Urobilinogen 0.2 mg/dL (<2.0) Ur Leukocyte Esterase Negative EMMA/UL (NEGATIVE) U Random Total Protein 13 mg/dL Urine Creatinine 13.9 mg/dL Protein/Creat Ratio 2 0.94 H mg/mg (0-0.20) RPR Pending Blood Type O Positive Antibody Screen Negative Patient hx anesthesia problems: none Family hx anesthesia problems: none Results Review: All pre-operative results and documents have been reviewed as part of the pre-operative evaluation. [facility] Past Medical History Medical History 37 weeks gestation of IUP (intrauterine ), incidental (normal spontaneous vaginal delivery) Preeclampsia Vaginal delivery Surgical Hist
--- NOTE | 2022-12-10 19:28 | WPDANESEPN ---
Anes - Epidural Procedure Note Date/Time: 12/10/22 19:28 Consent: I have discussed with the patient/family/POA, the placement of an epidural catheter and the use of epidural narcotic/local anesthetic for labor analgesia and/or postoperative pain management, including associated potential risks, benefits, complications and side effects. I have discussed alternative methods of labor analgesia and/or postoperative pain management. The patient/family/POA, understand(s) and wish(es) to proceed with epidural narcotic/local anesthetic for labor analgesia and/or postoperative pain management. Time-Out: A pre-procedural Time-Out was completed immediately before starting the procedure and confirmed: Patient Identification, Site, Procedure, Patient Position and the Availability of Requisite Equipment. Clinical Indications: Labor pain Epidural Insertion Note Patient position: sitting Skin prep: chlorhexidine and sterile drape Needle: 17g Tuohy Catheter: 19g Arrow FlexTip Plus Technique: Loss of resistance. Level of insertion: L4/5 Catheter skin abby (cm): 10 Length in epidural space (cm): 5 Skin anesthesia: lidocaine 1% Test dose: 1.5% Lidocaine with 1:[id number] Epi, negative for subarachnoid Inj and negative for intravascular Inj Time of test dose: 19:12 Observations: tolerated well Complications: none
[2022-12-10] MEDS: OXYTOCIN 30 UNITS/NS 500 ML 30 UNITS/500 ML BAG 125 UNITS IV CONT (22:52)
--- NOTE | 2022-12-10 23:18 | P.PCNOB_ITS ---
OB - Delivery Note Procedure Delivery date: 12/10/22 Procedure: Events: Preeclampsia w/o severe features Induction method: Per Pitocin Protocol Delivery augmentation: Rupture of Membranes Delivery monitor: External FHT and External Uterine Route of delivery: Episiotomy description: None Laceration Description: Periurethral, Vaginal and Labial Delivery repair: vicryl Specimen: Yes Quantitative Blood Loss (ml): 350 Anesthesia type: Epidural Disposition: Floor Narrative: Patient sent from office due to elevated blood pressure at home and in office, edema, and overnight weight gain of 5 lb. Cbc and CMP within normal limits. Upc ratio found to be 0.9. Patient counseled about induction of labor and she was agreeable. Induction started with Pitocin. Amniotomy Performed and clear fluid returned. She progressed quickly to complete dilation and pushed very well with contractions. She brought the head to a complete crown and the head remained at a complete crowned for several contractions. She was given the option of episiotomy or continuing to push. She elected to continue pushing. With the next contraction she delivered the head there was excellent restitution and then easy delivery of the anterior and posterior shoulders followed by the remainder of the infant. The was placed on maternal abdomen and care was transferred to the nursery staff. patient desired to avoid early cord clamping. Cord clamped at 4-5 minutes of life. Cord blood , cord gases, and cord segment were obtained. Placenta delivered spontaneously. the Villeda catheter was inserted into the urethra after which a first-degree periurethral vertical laceration was repaired. the vaginal laceration extended to both labia. After this was repaired in the usual fashion the remainder of the vagina was inspected and found to be within normal limits. The Villeda catheter was removed. There was excellent uterine tone and hemostasis. All delivery counts correct. Mother and infant skin to skin in the delivery room. [place] Baby Date of : 12/10/22 Time of : 22:14 Weeks of gestation at delivery: 37 gender: Female Weight (pounds): 7 Weight (ounces): 7 presentation: vertex position: Left Occiput Anterior Placenta delivery description: Spontaneous Cord Vessel Description: 3 Vessels, Clamped/Cut and Delayed Cord Clamping score one minute: 8 score five minutes: 9
--- NOTE | 2022-12-10 23:27 | PM.OBDSVD ---
DS: Admitting Diagnosis Discharge Date 12/10/[address] Bennett Admitting Diagnosis 32 y.o. at 37 weeks 6 days. Preeclampsia IOL DS: Discharge Diagnosis Discharge Diagnosis (1) Patient is a currently breast-feeding mother: Code(s): Z39.1 - Encounter for care and examination of lactating mother Status: Acute (2) Heart murmur: Code(s): R01.1 - Cardiac murmur, unspecified Status: Acute (3) (normal spontaneous vaginal delivery): Code(s): O80 - Encounter for full-term uncomplicated delivery Status: Acute OB - DS: Summary Hospital Course Hospital Course: Uncomplicated OB Procedures : Ultrasound OB Procedures Intrapartum: Spontaneous Vag Delivery OB Procedures: : None Peripartum Data Infant Delivery Method: Natural Vaginal Laceration Description: Periurethral, Vaginal - 2nd Degree and Labial Episiotomy description: None complications: none Time Spent with Patient Time attestation: Total time spent providing and/or coordinating discharge services: DS: Data Data Completed and Pending Pending studies at discharge: Pending at discharge 12/10/22 22:34 Surgical [PTH] Routine Labs on day of discharge: Labs from last 24 hours 12/10/22 12/10/22 14:10 10:57 WBC 9.2 RBC 3.86 L Hgb 11.2 L Hct 34.4 L MCV 89.1 MCH 29.0 MCHC 32.6 RDW 12.7 Plt Count 169 MPV 10.4 Immature Gran % (Auto) 0.4 Neut % (Auto) 73.5 H Lymph % (Auto) 19.5 [place] % (Auto) 5.7 Eos % (Auto) 0.5 Baso % (Auto) 0.4 Lymph # (Auto) 1.80 [place] # (Auto) 0.5 Eos # (Auto) 0.1 Baso # (Auto) 0.0 Abs Immat Gran (auto) 0.04 H Absolute Neuts (auto) 6.8 H Absolute Nucleated RBC 0.0 Nucleated RBC % 0.0 Sodium 134 L Potassium 4.1 Chloride 108 H Carbon Dioxide 20 L Anion Gap 6 L BUN 11 Creatinine 0.60 L Estim Creat Clear Calc Not Reportable Estimated GFR > 60 Glucose 78 Uric Acid 4.1 Calcium 8.4 Total Bilirubin 0.8 AST 28 ALT 18 Alkaline Phosphatase 102 Total Protein 7.0 Albumin 3.7 Urine Color Yellow Urine Appearance Clear Urine pH 6.5 Ur Specific [place] 1.005 Urine Protein Negative Urine Glucose (UA) Negative Urine Ketones Negative Ur Blood (Man) Negative Urine Nitrate Negative Urine Bilirubin Negative Urine Urobilinogen 0.2 Ur Leukocyte Esterase Negative U Random Total Protein 13 Urine Creatinine 13.9 Protein/Creat Ratio 2 0.94 H RPR Pending Blood Type O Positive Antibody Screen Negative Discharge Plan Discharge Attending physician on discharge: Irene Bennett Consulting providers: Miranda Wilson; Nixon Parikh; Emily Vines Discharging Clinician: Irene Bennett Patient Disposition: Home, Self-Care Activity: may shower Diet: as tolerated Wound Care Instructions: follow printed instructions Discharge Instructions: Education: Mom and Baby Guide Given to: Mother Follow-Up: Call your delivering provider's office for an appointment to be seen in: 6 Weeks Mom and baby should come to the [facility] for the follow-up appointment. Appointment Date/Time: Tuesday, December 13, 2022 at 10:00 a.m. What to expect at your follow-up visit: Blood Pressure Check Physical Assessment Call [phone] if you are unable to keep your appointment time. BREAST CARE: * Wear a snug supportive bra. * For engorgement discomfort: Breast Feeding: * Apply warm moist washcloths * Express milk as needed to relieve engorgement * Wear loose clothing Bottle Feeding: * May apply ice packs * For sore nipples: * Identify correct latch-on * Apply warm moist washcloths before and after nursing * Air dry nipples after nursing * May apply Lansinoh cream to nipples EPISIOTOMY/PERINEAL CARE: * Until bleeding
[2022-12-11] VITALS (15 sets, daily range): BP systolic 116–132; BP diastolic 72–90; PULSE 53–107; RESP 16–18; TEMP 36.5–36.8; O2SAT 97–100
--- NOTE | 2022-12-11 01:03 | OBPPTRN ---
Patient transferred to post room #280 via w/c. Support person present. Oriented to unit, room, information board, rooming in, admission packet and security measures. Patient verbalizes understanding.
[2022-12-11 05:01] LABS: Hematocrit 29.3 % (37.0-47.0); Hemoglobin 9.4 g/dL (12.0-15.0)
--- NOTE | 2022-12-11 07:22 | P.PNOB_ITS ---
OB - PN: Subj Subjective Date/time seen: 12/11/22 07:22 Patient comments: no complaints and pain well controlled baby status: doing well OB - PN: Obj Data Labs 12/11/22 04:29 12/10/22 10:57 Labs: Laboratory Results - last 24 hr 12/10/22 12/10/22 12/11/22 10:57 14:10 04:29 WBC 9.2 RBC 3.86 L Hgb 11.2 L 9.4 L Hct 34.4 L 29.3 L MCV 89.1 MCH 29.0 MCHC 32.6 RDW 12.7 Plt Count 169 MPV 10.4 Immature Gran % (Auto) 0.4 Neut % (Auto) 73.5 H Lymph % (Auto) 19.5 [place] % (Auto) 5.7 Eos % (Auto) 0.5 Baso % (Auto) 0.4 Lymph # (Auto) 1.80 [place] # (Auto) 0.5 Eos # (Auto) 0.1 Baso # (Auto) 0.0 Abs Immat Gran (auto) 0.04 H Absolute Neuts (auto) 6.8 H Absolute Nucleated RBC 0.0 Nucleated RBC % 0.0 Sodium 134 L Potassium 4.1 Chloride 108 H Carbon Dioxide 20 L Anion Gap 6 L BUN 11 Creatinine 0.60 L Estim Creat Clear Calc Not Reportable Estimated GFR > 60 Glucose 78 Uric Acid 4.1 Calcium 8.4 Total Bilirubin 0.8 AST 28 ALT 18 Alkaline Phosphatase 102 Total Protein 7.0 Albumin 3.7 Urine Color Yellow Urine Appearance Clear Urine pH 6.5 Ur Specific [place] 1.005 Urine Protein Negative Urine Glucose (UA) Negative Urine Ketones Negative Ur Blood (Man) Negative Urine Nitrate Negative Urine Bilirubin Negative Urine Urobilinogen 0.2 Ur Leukocyte Esterase Negative U Random Total Protein 13 Urine Creatinine 13.9 Protein/Creat Ratio 2 0.94 H Blood Type O Positive Antibody Screen Negative OB - PN A/P Assessment and Plan (1) Gestational HTN: Code(s): O13.9 - Gestational [-induced] hypertension without significant proteinuria, unspecified trimester Status: Acute Assessment and Plan: BP's normalized post delivery. No PIH sx. Obs. Plan day: 1 Plan: routine care Time Spent With Patient Time: Total time spent is greater than 50% in coordination of care (as documented) at patient's floor/unit and/or counseling patient: Exam : Bimanual exam- vagina & uterus: other (Uterus firm, nt @U)
[2022-12-11 07:23] LABS: Rapid Plasma Reagin Non-Reactive (NonReactive)
[2022-12-11] MEDS: CHOLECALCIFEROL 1,000 UNITS TABLET 2000 UNITS PO (08:29)
[2022-12-11] MEDS: IBUPROFEN 600 MG TABLET PO ×2 (08:29→17:36)
[2022-12-11] MEDS: POLYSACCHARIDE IRON COMPLEX 150 MG CAPSULE PO ×2 (08:31→17:36)
[2022-12-11] MEDS: DOCUSATE SODIUM 100 MG CAPSULE PO ×2 (08:31→17:36)
[2022-12-11] MEDS: MULTIVIT/MIN/PREN/FOL AC/IRON TABLET 1 TAB PO (08:31)
--- NOTE | 2022-12-11 09:31 | WPDANLDPN2 ---
Anes-Prog Note L&D Date/Time: 12/11/22 09:31 Comfortable throughout: labor and delivery Neuraxial method: epidural Epidural/Spinal procedure site: clean & non-tender Neuro status: Neuro function grossly intact. Cardiovascular status: normal Respiratory status: normal Airway patency: baseline Mental status: baseline Post-Op hydration status: normal Vital Signs: Last Vital Signs Temp 36.7 C 12/11/22 02:00 Pulse 87 12/11/22 02:00 Resp 18 12/11/22 02:00 BP 116/72 12/11/22 02:00 Pulse Ox 98 12/11/22 00:34 O2 Del Method Room Air 12/11/22 02:00 Pain score (VAS): 03/11 I/O: Intake & Output 12/10/22 12/11/22 12/11/22 23:59 07:59 15:59 Intake Total 1000 700 Output Total 550 850 Balance 1000 -550 -150 Post-procedural complaints: none Patient feedback: Patient satisfied with anesthetic care.
[2022-12-11] MEDS: ACETAMINOPHEN 325 MG TABLET 650 MG PO (14:42)
--- NOTE | 2022-12-11 18:33 | PC.NURSE ---
[id number] Introductions were made and Mother verbalizes she is able to independently latch infant with appropriate positioning/alignment. She denies any nipple discomfort and is responsively . Mother shared her last experience with her first as difficult the first 6-7 weeks, then stopping. This is currently meeting outcomes for weight, output, jaundice and feeding frequencies of 8-12 times in 24 hours. Mother declines any additional assistance but does have some questions. Discussed what an optimal latch with effective with jaw rocking, drop of the lower jawline with a swallow, ka sound with swallowing and not piston sucking. Mother voiced she has seen and heard all of the effective positive signs with this infant. There have been 9 breastfeedings since with no pain other than discomfort at first, then subsides. Output is more than adequate. is content in the crib with both hands relaxed. Mother is encouraged to call for assistance if her infant doesn?t latch or there is discomfort with latching. Mother voiced understanding of information shared and the mom reminded of the outpatient resources with the feeding sheet, mom/baby guide and Miranda Zamora at her OB office for an additional resources. Reported to the primary RN.
[2022-12-12 00:45] VITALS: BP 123/85; PULSE 89
[2022-12-12] MEDS: IBUPROFEN 600 MG TABLET PO (04:08)
[2022-12-12] MEDS: ACETAMINOPHEN 325 MG TABLET 650 MG PO (04:08)
[2022-12-12 04:18] VITALS: BP 130/76; PULSE 91
[2022-12-12 07:25] VITALS: BP 128/85; PULSE 86; RESP 16; TEMP 36.9; O2SAT 100
--- NOTE | 2022-12-12 08:48 | PM.OBPNVD ---
OB - PN: Subj Subjective Date/time seen: 12/12/22 08:48 Patient comments: no complaints and pain well controlled baby status: doing well OB - PN: Obj Data Labs 12/11/22 04:29 12/10/22 10:57 OB - PN A/P Plan day: 2 Plan: routine care, discharge home, follow up 6 weeks and other (plans micronor) Time Spent With Patient Time: Total time spent is greater than 50% in coordination of care (as documented) at patient's floor/unit and/or counseling patient: Exam : Bimanual exam- vagina & uterus: other (Uterus firm, nt @U)
[2022-12-12] MEDS: POLYSACCHARIDE IRON COMPLEX 150 MG CAPSULE PO (08:59)
[2022-12-12] MEDS: CHOLECALCIFEROL 1,000 UNITS TABLET 2000 UNITS PO (08:59)
[2022-12-12] MEDS: MULTIVIT/MIN/PREN/FOL AC/IRON TABLET 1 TAB PO (09:00)
[2022-12-12] MEDS: DOCUSATE SODIUM 100 MG CAPSULE PO (09:00)
--- NOTE | 2022-12-12 09:46 | PC.NURSE ---
Patient was given the opportunity to view the discharge video Mother & Baby Care, The First Two Weeks and to ask questions. Patient declined viewing the video and has been given the mother/baby guide for home reference.
[2022-12-13 10:32] VITALS: BP 117/85; PULSE 92; RESP 18; TEMP 36.8; O2SAT 99
== END 2022-12-12 11:20 | disposition home or self-care (01) | DRG 807 ==
LOC: ANHOBPP 10:13 → ANHLDR 13:30 → ANHOB2 12-11 01:08
PROVIDERS: Advanced Practice Midwife; Admitting Provider Obstetrics & Gynecology Gynecology; PCP Internal Medicine; Visit Provider Obstetrics & Gynecology Gynecology
DX: O14.04 Mild to moderate pre-eclampsia, complicating childbirth (principal); Z37.0 Single live birth; O13.4 Gestational [pregnancy-induced] hypertension without significant proteinuria, complicating childbirth; O71.82 Other specified trauma to perineum and vulva; Z3A.37 37 weeks gestation of pregnancy
CPT/HCPCS: 36415; 80053; 81003; 82570; 84156; 84550; 85014; 85018; 85025; 86592; 86850; 86900; 86901; 87086; 88307; A9270; J2590; J2795; J7120

== ENCOUNTER 2023-07-13 12:57 | Emergency (ER) | payer BC, SELFPAY ==
--- NOTE | ~2023-07-13 | CT_ITS ---
EXAMINATION: CT lumbar spine wo con DATE: 07/13/2023 14:54 INDICATION: Acute onset low back pain TECHNIQUE: Computed tomography (CT) of the lumbar spine was performed without intravenous contrast. A utomated exposure control and iterative reconstruction technique were employed. The dose-length produ ct was 522.62 mGy-cm. COMPARISON: None FINDINGS: Bone alignment is normal. Vertebral body heights are normal. No fractures. Mild disc height loss at L 4-L5. Paravertebral soft tissues are unremarkable. The following disc levels are specifically discuss ed: T11-T12: The disc does not extend beyond the endplate margin. There is mild bilateral facet joint ost eoarthritis. There is minimal left neural foraminal stenosis. There is no central canal stenosis. T12-L1: The disc does not extend beyond the endplate margin. There is minimal bilateral facet joint o steoarthritis. There is no neural foraminal stenosis. There is no central canal stenosis. L1-L2: The disc does not extend beyond the endplate margin. There is minimal bilateral facet joint os teoarthritis. There is no neural foraminal stenosis. There is no central canal stenosis. L2-L3: Disc is mildly bulging. There is mild bilateral facet joint osteoarthritis. There is no neural foraminal stenosis. There is no central canal stenosis. L3-L4: Disc is bulging. There is mild bilateral facet joint osteoarthritis. There is no neural forami nal stenosis. There is mild central canal stenosis. L4-L5: Disc is bulging with superimposed central disc protrusion or more likely extrusion as the disc material extends to extend minimally below level of the superior endplate of L5.. There is mild bila teral facet joint osteoarthritis. There is mild bilateral neural foraminal stenosis. There is mild ce ntral canal stenosis. L5-S1: Disc is bulging. There is mild bilateral facet joint osteoarthritis. There is mild bilateral n eural foraminal stenosis. There is mild central canal stenosis. IMPRESSION: 1. Mild lumbar spondylosis. Reviewed, dictated and finalized at location B. IMPRESSION: 1. Mild lumbar spondylosis.
[2023-07-13 13:04] VITALS: BP 147/87; PULSE 110; RESP 20; TEMP 37; O2SAT 100
[2023-07-13] MEDS: KETOROLAC 30 MG/ML VIAL (*BKC) IV PUSH (14:41)
[2023-07-13] MEDS: diazePAM INJ (*CRX) 10 MG/2 ML SYRINGE 2 MG IV PUSH (14:43)
[2023-07-13] MEDS: SODIUM CHLORIDE 0.9% IV 1,000 ML 999 ML IV CONT (14:45)
--- NOTE | 2023-07-13 15:10 | ED.BACK ---
HPI - Back Pain/Injury General Chief Complaint: Back Pain/Injury Stated Complaint: lower back pain Time Seen by Provider: 07/13/23 13:59 History of Present Illness HPI Narrative: Patient is a 32-year-old female who presents ER with sudden onset low back pain. Reports she has been having some chronic back discomfort is scheduled to follow-up with her PCP tomorrow. Reports she was holding her baby on the right hip when she leaned forward and felt something shift and felt a pop. She has had pain in her right back that radiates down to her right knee. No numbness or tingling in her leg or her privates. She has no issue with urination nurse defecation. She has pain with bending over and lifting the right leg. She has not found any alleviating factors other than lying flat. Related Data Home Medications Medication Instructions Recorded Confirmed vits no.126-ferrous fum 1 tablet PO DAILY 11/26/22 11/26/22 28 mg iron-folic acid 800 mcg tablet (Classic ) cholecalciferol (vitamin D3) 50 50 mcg PO DAILY 12/10/22 12/10/22 mcg (2,000 unit) capsule (Vitamin D3) Allergies Allergy/AdvReac Type Severity Reaction Status Date / Time No Known Allergies Allergy Verified 07/13/23 12:58 Review of Systems Review of Systems: All systems reviewed & are unremarkable except as noted in HPI and below Constitutional: Constitutional: Reports no additional constitutional complaints ENT: Reports system reviewed and no additional complaints, except as documented Cardiovascular: Cardiovascular: Reports no additional cardiovascular complaints Respiratory: Respiratory: Reports no additional respiratory complaints Gastrointestinal: Gastrointestinal: Reports no additional gastrointestinal complaints Musculoskeletal: Musculoskeletal: Reports back pain, Denies arthralgias, Denies joint swelling and Denies muscle cramps Neurologic: Reports system reviewed and no additional complaints, except as documented [facility] Past Medical History Medical History (Updated 07/13/23 @ 16:01 by Andrea Garcia MD) 37 weeks gestation of IUP (intrauterine ), incidental (normal spontaneous vaginal delivery) Preeclampsia Vaginal delivery Surgical History Surgical History No significant past surgical history Family History Family History Mother Diabetes mellitus Acute myocardial infarction, Onset Age: 64 Hypertension Father Hypertension Grandparent Colon cancer Social History Social History Smoking status: Never smoker Tobacco type: cigarettes Second hand tobacco smoke exposure: No Alcohol intake: current Substance use: never Substance use type: does not use Lack of Transportation: No Lack of Food: Never True Current Housing: I Have Housing Concerned About Future Housing: No Difficulty Paying Gas/Electric Bills: No Difficulty Paying for Meds: No Currently Unemployed: No Education: High School Diploma/GED Difficulty w/ Childcare or Family Care: No Living arrangements: with family Occupation/Education: occupation Gender identity (if verbalized by the patient): Female Sexual Orientation (if Verbalized by the Patient): Straight or Heterosexual Spiritual care concerns: No Exam Narrative: GENERAL: Uncomfortable-appearing, well-nourished, and in no acute distress. HEAD: Normocephalic, atraumatic. ENT: Mucous membranes moist. CHEST: Clear to auscultation. No respiratory distress. HEART: Regular rate and rhythm. Normal peripheral pulses. BACK: tender to palpation over the midline lower lumbar spine as well as the right paraspinal musculature. Minimal discomfort over left paraspinal in skilled sugar. EXTREMITIES: Normal range of motion. No edema. Positive straigh
[2023-07-13 15:59] VITALS: BP 122/81; PULSE 90; RESP 20; O2SAT 100
== END 2023-07-13 16:23 | disposition home or self-care (01) ==
PROVIDERS: Emergency Provider Emergency Medicine; PCP Internal Medicine
DX: M51.26 Other intervertebral disc displacement, lumbar region (principal); M47.816 Spondylosis without myelopathy or radiculopathy, lumbar region
CPT/HCPCS: 72131; 81025; 96361; 96374; 96375; 99284; J1885; J3360; J7030